=== PATIENT | male | born 1985 | race Caucasian/White ===

== ENCOUNTER 2018-08-13 15:48 | Emergency (ER) | payer SELFPAY ==
[~2018-08-13] VITALS: Ht 172.7 cm; Wt 90.9 kg
[2018-08-13 15:58] VITALS: TEMP 97.7
[2018-08-13 16:31] LABS: BASO # 0.1 (0.0-0.2); BASO % 0.7 % (0.0-2.0); EOS # 0.2 (0.0-0.7); EOS % 1.7 % (0-4.0); GRAN # 7.9 (1.4-6.5); GRAN % 65.3 % (42.2-75.2); HEMATOCRIT 48.2 % (42.0-52.0); HEMOGLOBIN 16.8 g/dl (13.5-18.0); LYMPH # 2.9 (1.2-3.4); LYMPH % 23.8 % (20.0-51.0); MEAN CELL VOLUME 84 fl (80.0-100.0); MEAN CORPUSCULAR HEMOGLOBIN 29 pg (27.0-31.0); MEAN CORPUSCULAR HGB CONC 35 g/dl (33.0-37.0); MEAN PLATELET VOLUME 10.1 fl (7.4-10.4); MONO % 8.1 % (1.7-9.3); PLATELET COUNT 295 K/mm3 (130-400); RED BLOOD COUNT 5.72 M/mm3 (4.20-5.60); REDCELL DISTRIBUTION WIDTH-CV 13.2 % (11.5-14.5)
[2018-08-13 16:58] LABS: ALBUMIN 4.8 gm/dL (3.5-5.0); BILIRUBIN,TOTAL 0.8 mg/dL (0.0-1.0); C-REACTIVE PROTEIN 1.1 mg/dL (0.0-0.9); CREATININE, serum 1.06 (0.66-1.25); POTASSIUM 4.4 mmol/L (3.4-5.0); TOTAL PROTEIN 8.2 gm/dL (6.4-8.2)
[2018-08-13 17:43] LABS: COLLECTION METHOD CLEAN CATCH
[2018-08-13 17:50] LABS: PH 6 (5-8); SQUAMOUS EPITHELIAL None Seen /hpf; URINE APPEARANCE Clear; URINE BACTERIA None Seen /hpf; URINE BILIRUBIN Negative (NEGATIVE); URINE BLOOD Negative (NEGATIVE); URINE COLOR Yellow; URINE GLUCOSE Negative (NEGATIVE); URINE KETONE Negative (NEGATIVE); URINE LEUKOCYTE ESTERASE Negative (NEGATIVE); URINE NITRATE Negative (NEGATIVE); URINE PROTEIN(semi-quant) Negative (NEGATIVE); URINE RBC 0-2 /hpf; URINE UROBILINOGEN Negative (NEGATIVE)
[2018-08-13 18:14] VITALS: BP 106/67; PULSE 96
== END 2018-08-13 18:14 | disposition home or self-care (01) ==
LOC: COL.ER 15:48
PROVIDERS: Family Medicine
DX: E86.0 Dehydration (principal); R25.2 Cramp and spasm; F17.210 Nicotine dependence, cigarettes, uncomplicated
CPT/HCPCS: J2060; J2405; J7030